=== PATIENT | male | born 1975 | race Caucasian/White ===

== ENCOUNTER 2017-01-19 19:05 | Emergency (ER) | payer OTHER ==
[~2017-01-19] VITALS: Ht 172.7 cm; Wt 93.0 kg
[~2017-01-19 19:05] MED LIST: DIPH50TA
[2017-01-19 19:11] VITALS: BP 136/101; PULSE 66; RESP 16; TEMP 98.7; O2SAT 97
[2017-01-19] MEDS ORDERED: SODIUM CHLOR 0.9% 1000 ML INJ 1,000 ML IV SCH (21:29)
[2017-01-19] MEDS ORDERED: LIDOCAINE VISCOUS 2% SOLN 15 ML UDC PO ONE (21:30)
[2017-01-19] MEDS ORDERED: SODIUM CHLORIDE 0.9% FLUSH 5 ML FLUSH IVF PRN (21:30)
[2017-01-19] MEDS ORDERED: ONDANSETRON HCL 4 MG/2 ML VIAL IVP ONE (21:30)
[2017-01-19] MEDS ORDERED: FAMOTIDINE 20 MG/2 ML VIAL IV PUSH ONE (21:30)
[2017-01-19] MEDS ORDERED: ALUMINUM/MAGNESIUM/SIMETH 30 ML CUP PO ONE (21:30)
[2017-01-19] MEDS ORDERED: PANTOPRAZOLE SODIUM 40 MG VIAL IVP ONE (21:30)
[2017-01-19 21:34] VITALS: BP 136/101; PULSE 66; RESP 16; TEMP 98.7; O2SAT 97
--- NOTE | 2017-01-19 21:34 | PD ---
HPI Chief Complaint: Abdominal Pain Time Seen by Provider: 21:29 Travel History International Travel<30 days: No Contact w/Intl Traveler<30days: No Traveled to known affect area: No History of Present Illness HPI The patient is a 41-year-old male with a history of GERD who about 24 hours ago started getting nauseated and vomiting. He complains of midline epigastric pain along with nausea now. He denies any fever but has had some chills. He denies any diarrhea. He denies any melanotic or bloody stools. He states his vomitus has brown flecks. He denies any history of ulcer disease. He denies any fever. The patient has cramping pain and at the peak of the cramps he states it is a 10 over 10 He did undergo upper endoscopy 10 years ago and apparently that was normal. [facility] Past Medical History Hypertension: Yes Social History Alcohol Use: Yes (social) Tobacco Use: Yes (1 pk) Allergies-Medications (Allergen,Severity, Reaction): Coded Allergies: No Known Allergies (Verified Allergy, Mild, 10/14/06) Reported Meds & Prescriptions Reported Meds & Active Scripts Active Reported Benadryl (Diphenhydramine HCl) 50 Mg Cap Review of Systems Except as stated in HPI: all other systems reviewed are Neg Physical Exam Narrative GENERAL: The patient is alert, oriented 3, slightly dehydrated-appearing and moderate apparent distress with his midline epigastric pain. SKIN: Warm and dry. HEAD: Atraumatic. Normocephalic. EYES: Pupils equal and round. No scleral icterus. No injection or drainage. ENT: No nasal bleeding or discharge. Mucous membranes pink and moist. NECK: Trachea midline. No JVD. CARDIOVASCULAR: Regular rate and rhythm. No murmur appreciated. RESPIRATORY: No accessory muscle use. Clear to auscultation. Breath sounds equal bilaterally. GASTROINTESTINAL: Abdomen soft, with tenderness to direct palpation in the midline epigastrium, nondistended. Hepatic and splenic margins not palpable. No guarding or rebound is present. MUSCULOSKELETAL: No obvious deformities. No clubbing. No cyanosis. No edema. NEUROLOGICAL: Awake and alert. No obvious cranial nerve deficits. Motor grossly within normal limits. Normal speech. PSYCHIATRIC: Appropriate mood and affect; insight and judgment normal. Data Data Last Documented VS Vital Signs Date Time Temp Pulse Resp B/P Pulse Ox O2 Delivery O2 Flow Rate FiO2 3/8/17 22:55 99 Room Air 01/19/17 21:34 98.7 66 16 136/101 Orders Complete Blood Count With Diff (01/19/17 21:29) Comprehensive Metabolic Panel (01/19/17 21:29) Lipase (01/19/17 21:29) Iv Access Insert/Monitor (01/19/17 21:29) Ecg Monitoring (01/19/17 21:29) Oximetry (01/19/17 21:29) Ondansetron Inj (Zofran Inj) (01/19/17 21:30) Pantoprazole Inj (Protonix Inj) (01/19/17 21:30) Sodium Chlor 0.9% 1000 Ml Inj (Ns 1000 M (01/19/17 21:29) Sodium Chloride 0.9% Flush (Ns Flush) (01/19/17 21:30) Famotidine Inj (Pepcid Inj) (01/19/17 21:30) Al-Mag Hy-Si 40-40-4 Mg/Ml Liq (Mag-Al P (01/19/17 21:30) Lidocaine 2% Viscous (Xylocaine 2% Visco (01/19/17 21:30) Labs Laboratory Tests Test 01/19/17 21:56 White Blood Count 12.2 TH/MM3 Red Blood Count 5.66 MIL/MM3 Hemoglobin 16.5 GM/DL Hematocrit 49.5 % Mean Corpuscular Volume 87.4 FL Mean Corpuscular Hemoglobin 29.2 PG Mean Corpuscular Hemoglobin 33.4 % Concent Red Cell Distribution Width 13.4 % Platelet Count 318 TH/MM3 Mean Platelet Volume 8.6 FL Neutrophils (%) (Auto) 79.4 % Lymphocytes (%) (Auto) 12.9 % Monocytes (%) (Auto) 7.0 % Eosinophils (%) (Auto) 0.2 % Basophils (%) (Auto) 0.5 % Neutrophils # (Auto) 9.6 TH/MM3 Lymphocytes # (Auto) 1.6 TH/MM3 Monocytes # (Auto) 0.9 TH/MM3 Eosinophils # (Auto) 0.0 TH/MM3 Basophils # (Auto) 0.1 TH/MM3 CBC Comment DIFF FINAL Differential Comment Sodium Level 140 MEQ/L Potassium Level 3.7 MEQ/L Chloride Level 101 MEQ/L Carbon Dioxide Level 30.6 MEQ/L Anion Gap 8 MEQ/L Blood Urea Nitrogen 15 MG/DL Creatinine 1.10 MG/DL Estimat Glomerular Filtration 73 ML/MIN Rate Random Glucose 109 MG/DL Calcium Level 9.3 MG/DL Total Bilirubin 1.0 MG/DL Aspartate Amino Transf 22 U/L (AST/SGOT) Alanine Aminotransferase 35 U/L (ALT/SGPT) Alkaline Phosphatase 61 U/L Total Protein 8.3 GM/DL Albumin 4.2 GM/DL Lipase 193 U/L MDM Medical Decision Making Medical Screen Exam Complete: Yes Emergency Medical Condition: Yes Medical Record Reviewed: Yes Interpretation(s) The CBC is normal except for a minimal elevation of the white count at 12,279% neutrophils. The complete metabolic profile shows a GFR of 73 and total protein of 8.3 but is otherwise normal. The lipase is normal. Differential Diagnosis Gastroesophageal reflux disease, ulcer pain, cholecystitis, cholelithiasis with colic, colitis, pyelonephritis, pancreatitis Narrative Course The patient appears to have GERD. It is now 1113 and he states his pain is now 2/10. He still gets cramps but the pain is not nearly as bad. Plan: The patient is given prescriptions for Zantac, Zofran and Prilosec. For the first few days he should take the Prilosec twice daily. He should use liquid Maalox/Mylanta. He should follow-up with belt maker or his primary care physician next week. Diagnosis Primary Impression: Gastroesophageal reflux disease Additional Instructions: As we discussed, it is a good idea to take liquid Maalox/Mylanta for temporary relief. The Prilosec initially is one tablet twice daily as is the Zantac. After few days he can go to once a day with the Prilosec. Zofran is every 6 hours as needed for nausea. Med/Other Pt SpecificInfo: Prescription(s) given Scripts Ranitidine (Zantac)150 Mg Lmr213 Mg PO BID #60 TAB Ref 0 Prov:Leonard Ayala MD 01/19/17 Omeprazole (Prilosec)20 Mg Cap20 Mg PO DAILY #30 CAP Ref 0 Prov:Leonard Ayala MD 01/19/17 Ondansetron (Zofran)8 Mg Tab8 Mg PO TID #28 TAB Ref 0 Prov:Leonard Ayala MD 01/19/17 Disposition: 01 DISCHARGE HOME Condition: Stable Leonard Ayala MD Jan 19, 2017 21:34
[2017-01-19 22:20] LABS: AUTOMATED NEUTROPHIL # 9.6 TH/MM3 (1.8-7.7); BASOPHIL # 0.1 TH/MM3 (0-0.2); BASOPHIL % 0.5 % (0.0-2.0); EOSINOPHIL % 0.2 % (0.0-4.0); HEMATOCRIT 49.5 % (39.0-51.0); HEMO FLAGS DIFF FINAL; LYMPH % 12.9 % (9.0-44.0); LYMPHOCYTE # 1.6 TH/MM3 (1.0-4.8); MEAN CELL VOLUME 87.4 FL (80.0-100.0); MEAN CORPUSCULAR HEMOGLOBIN 29.2 PG (27.0-34.0); MEAN CORPUSCULAR HGB CONC 33.4 % (32.0-36.0); NEUT % 79.4 % (16.0-70.0); PLATELET COUNT 318 TH/MM3 (150-450); RED BLOOD COUNT 5.66 MIL/MM3 (4.50-5.90); RED CELL DISTRIBUTION WIDTH 13.4 % (11.6-17.2); WHITE BLOOD COUNT 12.2 TH/MM3 (4.0-11.0)
[2017-01-19 22:47] LABS: CHLORIDE 101 MEQ/L (98-107); POTASSIUM 3.7 MEQ/L (3.5-5.1); SODIUM (NA) 140 MEQ/L (136-145)
[2017-01-19 22:51] LABS: ANION GAP 8 MEQ/L (5-15); BICARBONATE 30.6 MEQ/L (21.0-32.0); BLOOD UREA NITROGEN 15 MG/DL (7-18)
[2017-01-19 22:53] LABS: ALT (GPT) 35 U/L (12-78); AST (GOT) 22 U/L (15-37); GLOMERULAR FILTRATION RATE 73 ML/MIN (>89)
[2017-01-19 22:55] VITALS: O2SAT 99
[2017-01-19 22:56] LABS: ALKALINE PHOSPHATASE 61 U/L (45-117)
[2017-01-19] MEDS ORDERED: PRIL20CA9 PO (23:17)
[2017-01-19] MEDS ORDERED: ZANT150T2 PO (23:17)
[2017-01-19] MEDS ORDERED: ZOFR8TAB PO (23:17)
[2017-01-19] MEDS ORDERED: ONDANSETRON HCL 4 MG/2 ML VIAL IV ONE (23:30)
[2017-01-19] MEDS ORDERED: RANITIDINE HCL 150 MG TAB PO ONE (23:30)
[2017-01-19] MEDS ORDERED: FAMOTIDINE 20 MG TAB PO ONE (23:30)
[2017-01-19 23:32] VITALS: BP 128/64
== END 2017-01-19 23:54 | disposition home or self-care (01) ==
LOC: PHED 19:05
DX: K21.9 Gastro-esophageal reflux disease without esophagitis (principal); I10 Essential (primary) hypertension
CPT/HCPCS: 80053; 83690; 85025; 96361; 96374; 96375; 96376; 99284; C9113; J2405; J7030